=== PATIENT | female | born 1960 | race Caucasian/White ===

== ENCOUNTER → 2020-04-15 13:52 | Outpatient (CLI) | payer OTHER, SELFPAY ==
--- NOTE | 2020-04-15 14:01 | CT_ITS ---
STUDY: CT MAXILLOFACIAL SINUSES REASON FOR EXAM: Female, 59 years old. SINUSITIS RADIATION DOSAGE (If Supplied By Facility): CTDIvol = ( 33.06 ) mGy, DLP = ( 780.13 ) mGycm TECHNIQUE: The patient was scanned in a multi detector CT scanner. High resolution axial imaging was performed without the administration of intravenous contrast material. Sagittal and coronal images were reconstructed. Individualized dose optimization techniques were used for this CT. COMPARISON: None. FINDINGS: FRONTAL SINUSES: Normal aeration, without mucosal inflammatory disease. ETHMOIDAL SINUSES: Mild mucosal thickening of the ethmoid sinuses bilaterally. MAXILLARY SINUSES: Mild mucosal thickening of the maxillary sinuses. SPHENOIDAL SINUSES: Normal aeration, without mucosal inflammatory disease. There is patency of the bilateral maxillary infundibuli with normal uncinate processes, ethmoid bullae, and hiatus semilunaris. Normal bilateral middle turbinates. There is hypertrophy of the left inferior nasal turbinate. There is a right sided nasal septal deviation with a right sided nasal septal spur. There is patency of the bilateral nasal airways. The visualized osseous structures are normal. The visualized bilateral orbital contents are normal. CT/Sinus/Facial Bone IMPRESSION: Mild degree of mucosal thickening of the bilateral maxillary and ethmoid sinuses. Electronically Signed: Ehsan Guerrero, at 14:35 EDT , Service support ,
== END ==
PROVIDERS: PCP Family Medicine; Referring Provider Otolaryngology; Visit Provider Otolaryngology
DX: J32.9 Chronic sinusitis, unspecified (principal)
CPT/HCPCS: 70486

== ENCOUNTER 2023-04-18 09:32 | Day surgery (SDC) | payer BC, SELFPAY ==
--- NOTE | 2023-04-18 | LYM_PTH ---
PATIENT: RYAN WISE LOC: [facility] [place][id number] AGE/SX: 62/F ROOM: RE04/18/[address]: Dr. Juan Ramon Whittaker MD : 1960 BED: DIS: 04/18/2023 SPEC #: [id number] RECD: 04/18/23 13:11 STATUS: SERG MEDEIROSLiya #: [id number] OCTAVIO: 04/18/23 00:[address]: Juan Ramon Whittaker DEPT: SURGICAL PATHOLOGY RECD BY: Landon Li ENTERED: 04/18/23 13:13 SP TYPE: LYM NODES OTHR DR: Dr. Jose Andrade MD Tissues: A - LYMPH NODE BIOPSY B - Left breast, NOS Procedures: Surgery Specimen Level V HEADER OPERATION: Left breast mass PRE-OP DIAGNOSIS: Intraductal papilloma TISSUE SUBMITTED: Left breast mass MICROSCOPIC DIAGNOSIS Left breast mass, lumpectomy: Intraductal papilloma with focal cytologic atypia, excised. Focal atypical intraductal hyperplasia. Usual intraductal hyperplasia. Fibrocystic change. Cystic fat necrosis. Banal microcalcifications of ductal epithelium and vessel silver. Changes of previous biopsy. COMMENT Case has been reviewed in consultation with Dr. Anthony who concurs with the above diagnosis. IDC:[id number] MICROSCOPIC DESCRIPTION Slides are reviewed. GROSS DESCRIPTION Received in formalin is one container labeled with the patient name and designated left breast mass. The specimen consists of a piece of capps, yellow fibroadipose tissue measuring 4 x 4 x 3 cm. The specimen is oriented as follows, short stich -superior and long stitch lateral. The specimen is inked as follows: anterior - yellow, posterior - black, superior - blue, inferior - green, medial - red and lateral - orange. Sections reveal a capps congested lesion measuring 1.5 x 1 x 1.0 cm. The lesion is 5.0mm from the closest (medial) margin. The specimen is totally submitted in 11 cassettes from anterior (1 cassette) to posterior margin (11 cassette). /VAN: 04/19/23 TC:1 CPT:57972
[2023-04-18 10:04] VITALS: BP 149/79; PULSE 93; RESP 16; TEMP 36.6; O2SAT 95; BMI 34.0
[2023-04-18] MEDS: Lactated Ringers 1,000 ML 15 ML IV (10:04)
--- NOTE | 2023-04-18 10:10 | HP.PCM_ITS ---
History and Physical Date of Admission: 04/18/23 Intake Vital Signs 03/21/2310:17 Height 5 ft 8 in Weight: 224 lb BMI 34.0 BP 138/86 H Blood Pressure Location Rt brachial Position Sitting Respiration 17 Pulse 96 Pulse Source Monitor Pulse Oximetry (%) 93 Oxygen Delivery Method room air Intake Visit Reasons: INTRADUCTAL PAPILOMA OF BREAST Chief Complaint: intraductal papiloma Is patient in pain?: No Allergies atorvastatin Allergy (Intermediate, Verified 03/21/23 10:20) Pain in joints Medications albuterol sulfate 90 mcg/actuation breath activated powder inhaler 2 inh inhalation Q6H PRN 03/21/23 [History Confirmed 03/21/23] allopurinol 300 mg tablet 300 mg PO DAILY 03/21/23 [History Confirmed 03/21/23] calcium carbonate 500 mg-vitamin D3 200 unit-vitamin K2 90 mcg tablet tab PO 03/21/23 [History Confirmed 03/21/23] cetirizine 10 mg disintegrating tablet 10 mg PO DAILY 03/21/23 [History Confi rmed 03/21/23] cholecalciferol (vitamin D3) 75 mcg (3,000 unit) tablet 75 mcg PO DAILY 03/21/23 [History Confirmed 03/21/23] fluticasone propionate 50 mcg/actuation nasal spray,suspension 1 spray intr anasal DAILY 03/21/23 [History Confirmed 03/21/23] insulin glargine U-300 conc 300 unit/mL (1.5 mL) subcutaneous pen 126 unit subcut DAILY 03/21/23 [History Confirmed 03/21/23] insulin lispro 200 unit/mL (3 mL) subcutaneous pen (Humalog KwikPen U-200 Insulin) 60 unit subcut QACBREAK 03/21/23 [History Confirmed 03/21/23] levothyroxine 112 mcg capsule 112 mcg PO DAILY 03/21/23 [History Confirmed ] lisinopril 40 mg tablet 40 mg PO DAILY 03/21/23 [History Confirmed 03/21/23] magnesium oxide mg PO 03/21/23 [History Confirmed 03/21/23] mometasone-formoterol HFA 200 mcg-5 mcg/actuation aerosol inhaler (Dulera) 1 puff inhalation BID PRN 03/21/23 [History Confirmed 03/21/23] multivitamin 1 tab PO DAILY 03/21/23 [History Confirmed 03/21/23] potassium gluconate 595 mg (99 mg) tablet 2,380 mg PO DAILY 03/21/23 [History Confirmed 03/21/23] pramlintide 2,700 mcg/2.7 mL subcutaneous pen injector (SymlinPen 120) 120 mcg subcut QAC 03/21/23 [History Confirmed 03/21/23] semaglutide 0.25 mg or 0.5 mg (2 mg/3 mL) subcutaneous pen injector 0.25 mg subcut QWEEK 03/21/23 [History Confirmed 03/21/23] spironolactone 50 mg tablet (Aldactone) 50 mg PO DAILY 03/21/23 [History Confirmed 03/21/23] vitamin B complex 1 cap PO DAILY 03/21/23 [History Confirmed 03/21/23] PFSH Surgical History (Updated 03/21/23 @ 10:16 by Alexsandra Gonzalez) H/O knee surgery H/O parathyroidectomy H/O thyroidectomy H/O: hysterectomy History of lumpectomy of left breast Social History (Updated 03/21/23 @ 10:17 by Alexsandra Gonzalez) Smoking Status: Never smoker alcohol intake: never substance use type: does not use HPI HPI HPI: Patient is a 62-year-old female here with papilloma of the left breast. Patient had a mass behind the nipple and this was biopsied at the outside hospital. It shows intraductal papilloma. She was sent here for excision. She says she was having bloody nipple discharge until the biopsy. ROS General General: Yes weight change and fatigue; No appetite, colon cancer, breast cancer or weakness HEENT HEENT: No difficulty swallowing, eye injury, eye surgery, swollen glands or hoarseness Endo Endocrine: Yes diabetes mellitus and thyroid cancer; No thyroid disease, Hair loss, heat intolerance or cold intolerance Skin Skin: No rash or changing moles Breast Breast: Yes abnormal mammogram; No left breast lump, right breast lump, nipple discharge, breast pain, abnormal US or breast enlargement Musc Musculoskeletal: Yes arthritis and gout; No back problems, rheumatoid arthritis or joint pain Cardio Cardiovascular: Yes high blood pressure; No murmur, pacemaker, heart disease, atrial fibrillation, heart attack, heart stent, palpitations, shortness of breat with exertion or chest pain Psych Psychiatric: No depression, anxiety or hearing voices Resp Respiratory: Yes shortness of breath, No sleep apnea, No cough, No COPD, Yes asthma, No emphysema and No wheezing Gastro Gastrointestinal: No abdominal pain, No nausea or vomiting, No diarrhea, Yes constipation, No blood in stool, No acid reflux, Yes hemorrhoids, No ulcers, No gallbladder problem and No black,tarry stools Hilario Hematologic: No blood thinners, No blood disorders, No bleeding, No anemia and No blood clots Neuro Neurologic: No system reviewed and no additional complaints, except as documented, No as per HPI, No abnormal gait, No abnormal hearing, No abnormal movements, No abnormal speech, No behavioral changes, No burning sensations, No confusion, No convulsions, No disequilibrium, No dizziness, No localized wea kness, No frequent falls, No headache(s), No lack of coordination, No loss of vision, No memory loss, No numbness, No other visual disturbances, No radicular pain, No restless legs, No sensory deficit, No syncope, No tingling, No tremor(s), No weakness and No other Assessment and Plan Assessment and Plan (1) Intraductal papilloma: Status: Acute Plan: Patient had biopsy of the left breast which shows intraductal papilloma. I recommend central ductal excision to completely remove this area and send it for pathology. I discussed this with her in detail. I recommended excision I discussed the risks of bleeding and infection and need for further surgery if this came back cancerous. Patient understands all the risks and is willing to proceed. I also discussed the risk of nipple necrosis. Juan Ramon Whittaker MD Pager: [facility] [address] [place] [address], [address] [place] [address] Office: I have examined the patient and the H&P has been reviewed. There are no clinical changes since date of exam.
[2023-04-18 11:05] LABS: Bedside Glucose 216 mg/dL (74-106)
[2023-04-18] MEDS: Cefazolin 2 GM in 0.9% Normal Saline 100 ML IV (11:10)
[2023-04-18] MEDS: Bupivacaine Mpf 0.5% 30 ML VIAL (11:18)
--- NOTE | 2023-04-18 11:25 | BI_ITS ---
SURGICAL BREAST SPECIMEN RADIOGRAPH CLINICAL: Document presence of mass in biopsy specimen. FINDINGS: Specimen shows presence of mass. Electronically Signed: Ehsan Guerrero MD at 12:06 EDT , BI/Breast Biopsy Specimen IMPRESSION: undefined
[2023-04-18 11:34] VITALS: BP 147/85; BP 149/79; PULSE 100; RESP 20; TEMP 36.1; O2SAT 95
--- NOTE | 2023-04-18 11:43 | OP.PCM_ITS ---
Report of Operation Date of Procedure: 04/18/23 Pre-Operative Diagnosis: Left breast intraductal papilloma Post-Operative Diagnosis: Same Surgery/Procedure Performed:: Left breast central ductal excision Type of Anesthesia: General/Regional Specimen's removed: Left breast biopsy Estimated Blood Loss (mL): 5 Description of Procedure: Left breast was prepped and draped in usual sterile fashion. Ultrasound was used to localize the clip in the lateral aspect of the nipple. The an incision was marked at the areolar border. It was injected with local anesthetic. An incision was made and electrocautery was used to maintain hemostasis. The mass was identified and removed using electrocautery dissection. It was marked with marking stitches and sent for x-ray. X-ray confirmed the clip was in place. The cavity was irrigated and suctioned dry. Hemostasis was obtained using electrocautery. The incisions were closed with 3-0 Vicryl suture. The skin was closed with running 4-0 Monocryl suture. Dermabond was applied. Patient was taken to PACU in stable condition. Juan Ramon Whittaker MD Pager: [facility] [address] [place] [address], [address] [place] [address] Office: Admit VTE Documentation VTE Mechan Device Prophylaxis: SCD's
[2023-04-18 11:45] VITALS: BP 149/79; PULSE 95; RESP 16; O2SAT 94
--- NOTE | 2023-04-18 11:45 | DCINST_ITS ---
Discharge Instructions Procedure Breast Surgery Diet Discharge Diet: No restrictions Activity Discharge Activity: May Not Drive (for 2-3 days or while taking narcotic pain medications.) May shower in (days): 1 Lifting Restrictions: 15 lbs for 1 week Dressing / Incision Call your doctor if your incision/area has: Continuous Slow Oozing, Sudden Increased Bleeding, Increased Pain/ Swelling, Increased Redness, Foul Smelling Discharge and Swelling at the incision site Call your doctor if you observe: Fever of 101 or Higher Suture Line Care: Avoid Pulling/Pushing and Avoid Pinching/Bending Follow Up Care Please Follow Up With: Juan Ramon Whittaker MD When: Please call to schedule 2 week follow up appointment. [phone] Test Results: Test results from this visit will be discussed in further detail at your follow- up appointment, if applicable. Discharge Plan Admission Attending Provider: Juan Ramon Whittaker Primary Care Provider: Jose Andrade Instructions Additional Instructions / Restrictions: Ibuprofen and Tylenol for pain, Percocet for breakthrough Discharge Orders/Prescriptions Prescriptions: New oxycodone-acetaminophen [Percocet] 5-325 mg tablet 1 tab PO Q6H PRN (Reason: pain) 5 Days Qty: 15 0RF No Action albuterol sulfate 90 mcg/actuation aerosol powdr breath activated 2 inh inhalation Q6H PRN (Reason: shortness of breath or wheezing) allopurinol 300 mg tablet 300 mg PO DAILY calcium carb-vitamin D3-vit K2 500 mg calcium- 200 unit-90 mcg tablet 1 tab PO BID cetirizine 10 mg tablet,disintegrating 10 mg PO DAILY cholecalciferol (vitamin D3) 75 mcg (3,000 unit) tablet 75 mcg PO DAILY fluticasone propionate 50 mcg/actuation spray,suspension 1 spray intranasal DAILY Rx Instructions: administer into each nostril insulin glargine U-300 conc 300 unit/mL (1.5 mL) insulin pen 126 unit subcut QHS Humalog KwikPen Insulin 200 unit/mL (3 mL) insulin pen 60 unit subcut QACBREAK levothyroxine 112 mcg capsule 112 mcg PO MOTUTHFRSA lisinopril 40 mg tablet 40 mg PO DAILY magnesium oxide 200 mg magnesium tablet,chewable 500 mg PO QHS Dulera 200-5 mcg/actuation HFA aerosol inhaler 1 puff inhalation BID PRN (Reason: wheezing) multivitamin Tablet 1 tab PO DAILY potassium gluconate 595 mg (99 mg) tablet 2,380 mg PO DAILY SymlinPen 120 2,700 mcg/2.7 mL pen injector 120 mcg subcut QAC Rx Instructions: give before meal(s) spironolactone [Aldactone] 50 mg tablet 50 mg PO DAILY vitamin B complex Capsule 1 cap PO DAILY Bifidobacterium infantis [Align] 2 tab PO DAILY ascorbic acid (vitamin C) [C-500] 500 mg tablet 1 g PO DAILY omega-3 fatty acids-fish oil [Fish Oil] 360-1,200 mg capsule 2 cap PO BID Referrals / Follow Up: Jose Andrade MD [Primary Care Provider] - Disposition Disposition (needs filled in before D/C Order can be placed): Home, Self Care
[2023-04-18 12:00] VITALS: BP 139/77; BP 149/79; PULSE 90; RESP 16; O2SAT 94
[2023-04-18 12:05] LABS: Bedside Glucose 216 mg/dL (74-106)
[2023-04-18 12:15] VITALS: BP 142/83; BP 149/79; PULSE 85; RESP 16; TEMP 36.4; O2SAT 95
--- NOTE | 2023-04-18 12:18 | NURSING ---
CHARTED FOR DAVON Georges RN. BP DID NOT TAKE.
[2023-04-18 12:35] VITALS: BP 149/79
== END 2023-04-18 13:25 | disposition home or self-care (01) ==
LOC: SDC 09:32 → AC 09:34
PROVIDERS: PCP Family Medicine; Referring Provider Surgery; Visit Provider Surgery
PROC: (CPT 19125; principal; 2023-04-18 10:45)
DX: D24.2 Benign neoplasm of left breast (principal); E11.9 Type 2 diabetes mellitus without complications; N64.52 Nipple discharge; I10 Essential (primary) hypertension; Z87.19 Personal history of other diseases of the digestive system; E89.0 Postprocedural hypothyroidism
CPT/HCPCS: 19125; 00400; 76098; 82962; 88305; 88307; 88309; J7120; J2405